=== PATIENT | male | born 1965 | race Caucasian/White ===

== ENCOUNTER 2017-01-15 19:01 | Emergency (ER) | payer BC ==
[~2017-01-15] VITALS: Ht 190.5 cm; Wt 124.7 kg
[~2017-01-15 19:01] MED LIST: LORA0.5T PO; OXYC-360 PO; PHEN12.5 PO; QUET1TAB67 PO
[2017-01-15 19:29] VITALS: BP 151/83; PULSE 83; RESP 18; TEMP 98.5; O2SAT 99
[2017-01-15] MEDS ORDERED: ESZO1TAB PO (19:44)
[2017-01-15] MEDS ORDERED: blood pressure med PO (19:44)
[2017-01-15] MEDS ORDERED: SERO100T PO (19:44)
[2017-01-15] MEDS ORDERED: LIDOCAINE HCL 1% 50 ML VIAL INFIL ONE (19:45)
--- NOTE | 2017-01-15 19:52 | PD ---
HPI . Laceration Chief Complaint: Laceration/Skin Injury Time Seen by Provider: 19:44 Travel History International Travel<30 days: No Contact w/Intl Traveler<30days: No Traveled to known affect area: No History of Present Illness HPI She presents with the chief complaint of a laceration of the right middle finger. He cut it working in the garage. He is complaining with some associated pain which he rates 8/10. No modifying factors. PFSH Past Medical History Anxiety: Yes Cardiovascular Problems: Yes (HTN) Diminished Hearing: No Hypertension: Yes Insomnia: Yes Immunizations Current: Yes Influenza Vaccination: Yes Past Surgical History Other Surgery: Yes (PYONIDAL CYST REMOVED) Social History Alcohol Use: Yes (SOCIALLY) Tobacco Use: Yes (CHEWING TOBACCO) Substance Use: No Allergies-Medications (Allergen,Severity, Reaction): Coded Allergies: No Known Allergies (Unverified , 01/15/17) Reported Meds & Prescriptions Reported Meds & Active Scripts Active Reported [blood pressure med] 1 Tab PO DAILY Lunesta (Eszopiclone) 2 Mg Tab 2 Mg PO HS PRN Seroquel (Quetiapine Fumarate) 100 Mg Tab 150 Mg PO HS Review of Systems Except as stated in HPI: all other systems reviewed are Neg Skin: Positive Other (laceration) Physical Exam Narrative GENERAL: Awake and alert. No acute distress. SKIN: 1 cm laceration on the palmar surface of the right middle finger. HEAD: Normocephalic/atraumatic. EYES: Pupils are equal. Extraocular movements are intact. NECK: Supple. RESPIRATORY: Nonlabored respirations. MUSCULOSKELETAL: Full range of motion. NEUROLOGICAL: Nonfocal. PSYCHIATRIC: Appropriate mood and affect. Data Data Last Documented VS Vital Signs Date Time Temp Pulse Resp B/P (MAP) Pulse Ox O2 Delivery O2 Flow Rate FiO2 01/15/17 19:29 98.5 83 18 151/83 (105) 99 Orders Orders Lidocaine 1% Inj (50 Ml) (Xylocaine 1% I (01/15/17 19:45) MDM Medical Decision Making Medical Screen Exam Complete: Yes Emergency Medical Condition: Yes Differential Diagnosis Differential diagnosis includes but is not limited to skin laceration, muscular laceration, tendon laceration, neurovascular laceration. Narrative Course This patient presents for repair of a finger laceration. Procedures Procedure Narrative LACERATION LOCATION: Right third finger LENGTH: 2 cm NUMBER OF STITCHES/KAMILLA: 3 REPAIR: The area of the laceration was prepped with Betadine and sterilely draped. The laceration was infiltrated with 1% plain lidocaine. The wound was copiously irrigated and explored without evidence of foreign body, tendon injury or neurovascular injury. The wound was closed using 4-0 Prolene. This was a single layer repair. A sterile dressing was applied. The patient was advised to keep the dressing clean and dry. Patient tolerated the procedure well. Diagnosis Primary Impression: Finger laceration Qualified Codes: S61.212A - Laceration without foreign body of right middle finger without damage to nail, initial encounter Patient Instructions: Finger Laceration (ED), General Instructions Additional Instructions: Clean the wound twice daily with soap and water. Apply a thin layer of Neosporin ointment after you wash it. See your doctor in 7 days for suture removal. Seek care sooner for redness, drainage, warmth, unusual pain. Disposition: 01 DISCHARGE HOME Condition: Stable Precious Steven MD Jan 15, 2017 19:52
== END 2017-01-15 20:37 | disposition home or self-care (01) ==
LOC: PHEFT 19:01
DX: S61.212A Laceration without foreign body of right middle finger without damage to nail, initial encounter (principal); W45.8XXA Other foreign body or object entering through skin, initial encounter
CPT/HCPCS: 12001